=== PATIENT | female | born 1965 | race Caucasian/White ===

== ENCOUNTER 2019-08-29 20:13 | Emergency (ER) | payer BC ==
[2019-08-29] MEDS ORDERED: Ibuprofen 200 MG TAB ONE ×2 (20:25→20:26)
--- NOTE | 2019-08-29 21:09 | RAD ---
RIGHT WRIST THREE VIEWS: 08/29/2019 FINDINGS: Some soft tissue swelling is seen on the dorsum of the distal forearm. The underlying radius and ulna appear intact. The carpal bones appear normal as well. The metacarpals show no acute fracture. There has probably been an old injury of the fifth metacarpal. IMPRESSION: Soft tissue swelling but no acute bony findings. POS: HOME
== END 2019-08-29 20:34 | disposition home or self-care (01) ==
LOC: BURERS 20:13
DX: S60.211A Contusion of right wrist, initial encounter (principal); Z79.82 Long term (current) use of aspirin; W20.8XXA Other cause of strike by thrown, projected or falling object, initial encounter